=== PATIENT | female | born 1990 | race African-American/Black ===

== ENCOUNTER 2024-04-27 11:19 | Emergency (ER) | payer SELFPAY ==
[~2024-04-27] VITALS: Ht 172.7 cm; Wt 64.0 kg
[2024-04-27 11:25] VITALS: BP 156/82; PULSE 115; RESP 20; TEMP 98.6; O2SAT 95
== END 2024-04-27 12:04 | disposition left against medical advice (07) ==
LOC: ER 11:19
DX: R11.2 Nausea with vomiting, unspecified (principal); Z53.21 Procedure and treatment not carried out due to patient leaving prior to being seen by health care provider